=== PATIENT | male | born 1955 | race Caucasian/White ===

== ENCOUNTER → 2016-10-22 | Outpatient (CLI) | payer OTHER ==
[~2016-10-22] MED LIST: ALLOPURINOL; BP MED; CHOLEST MED; ERYOPO OP; PREVACID
[2016-10-22 09:37] LABS: BASO % 0.2 %; BASO ABS # 0.01 K/uL (0-0.2); COMPLETE YES; HEMATOCRIT 44.8 % (42-52); IG% 0.5 %; LYMPH % 36.9 %; LYMPH ABS # 2.44 K/uL (1.2-3.4); MEAN CELL VOLUME 93.1 fL (80-100); MEAN CORPUSCULAR HEMOGLOBIN 32.2 pg (25-34); MEAN CORPUSCULAR HGB CONC 34.6 g/dl (32-36); MEAN PLATELET VOLUME 11.8 fL (7.4-10.4); MONO % 6.7 %; NEUT % 53.7 %; PLATELET COUNT 178 K/uL (130-400); RED BLOOD COUNT 4.81 M/uL (4.7-6.1); WHITE BLOOD COUNT 6.61 K/uL (4.8-10.8)
[2016-10-22 10:11] LABS: ALB/GLOB RATIO 1.1 (0.9-2); ALKALINE PHOSPHATASE 70 U/L (45-117); ALT/SGPT 64 U/L (12-78); AST/SGOT 40 U/L (15-37); BLOOD UREA NITROGEN 9 mg/dl (7-18); BUN/CREATININE RATIO 8.6 (10-20); CALCIUM 9.7 mg/dl (8.5-10.1); CARBON DIOXIDE 25 mmol/L (21-32); CHLORIDE 102 mmol/L (98-107); CHOLESTEROL 185 mg/dl (0-200); CHOLESTEROL/HDL RATIO 6.9; GLUCOSE 112 mg/dl (70-99); HDL CHOLESTEROL 27 mg/dl; MAGNESIUM 2.5 mg/dl (1.8-2.4); SODIUM 137 mmol/L (136-145); TRIGLYCERIDES 796 mg/dl (0-150)
[2016-10-22 10:15] LABS: URIC ACID 6.9 mg/dl (2.6-7.2)
== END | disposition home or self-care (01) ==
LOC: C.LAB1850 08:25
PROVIDERS: ATTEND Nurse Practitioner Family
DX: K21.9 Gastro-esophageal reflux disease without esophagitis (principal); M10.9 Gout, unspecified; E78.5 Hyperlipidemia, unspecified; I10 Essential (primary) hypertension